=== PATIENT | female | born 1965 | race Caucasian/White ===

== ENCOUNTER 2024-09-16 14:39 | Emergency (ER) | payer SELFPAY ==
[2024-09-16 14:40] VITALS: BMI 35.2
[2024-09-16 15:36] VITALS: BP 168/94; PULSE 80; RESP 19; TEMP 37.1; O2SAT 96
--- NOTE | 2024-09-16 15:39 | XR_ITS ---
Examination: Bilateral wrists 6 views TECHNIQUE: AP oblique lateral bilateral wrists 6 views Exam date and time: September 16, 2024 1552 hours INDICATIONS: Injury to the wrist today, wrist pain. FINDINGS: 3 mm old bone density adjacent to the trapezium Old fracture distal left radial metaphysis No acute wrist fracture No opaque foreign body IMPRESSION: No acute wrist fracture
[2024-09-16] MEDS: IBUPROFEN TAB 600 MG TABLET PO (15:44)
--- NOTE | 2024-09-16 16:11 | EDNOTE_ITS ---
ED Fall Injury RME/HPI General Chief Complaint: Fall Stated Complaint: FALL/TRIP AT WORK, C/O LEFT WRIST PAIN Time Seen by Provider: 09/16/24 15:42 Source: patient Arrival date/time: 09/16/24 14:39 This is a 59-year-old female who presents to the emergency department with complaints of a trip and fall while at work. Patient reports she was carrying something while walking and tripped over landing on her outstretched left hand. Complains of intermittent left wrist pain. Patient did not attempt any interventions or take any OTC medications prior to ED visit. Patient denies any other associated symptoms or aggravating factors. No modifying factors, no radiation, no migration. Mode of arrival: ambulatory Related Data Previous Rx's ?Medication ?Instructions ?Recorded naproxen 500 mg tablet 500 mg PO BID #20 tabs 06/07/18 Allergies Allergy/AdvReac Type Severity Reaction Status Date / Time No Known Allergies Allergy Verified 09/16/24 14:41 Review of Systems Review of Systems Systems Reviewed: All systems reviewed, normal except as documented Narrative Review of Systems: Gen: No fever, no chills, no weight loss EYES: No discharge, no visual changes, no pain HEENT: No ear pain, no congestion, no sore throat PULM: No shortness of breath, no cough, no congestion CV: No chest pain, no dyspnea on exertion, no palpitations GI: No nausea, no vomiting, no diarrhea, no pain, no constipation : No frequency, no urgency,? no dysuria Musc/skel: No joint pain, no back pain Skin: No rash? ED Exam Narrative Physical exam: General: Sittiing in Exam table in no acute distress, answering questions appropriately HENT: normocephalic, atraumatic, EOMI, PERRLA, moist mucous membranes Chest: chest wall is nontender Cardiac: regular rate and rhythm, normal S1 and S2, no murmurs, rubs, or gallops, capillary refill ?2 seconds Pulmonary: clear to auscultation bilaterally, no wheezing, crackles, or rhonchi Abdominal: active bowel sounds, soft, nontender, nondistended Neuro: A&OX3, CN II-XII intact, sensation grossly intact bilaterally in UE and LE. Skin: no rashes, no ecchymosis Ext:kleft arm pain with rom Course Quality Measures none Orders Category Date Time Status XR wrist comp BI min 3V Stat Exams 09/16/24 15:39 Completed Ibuprofen Tab [Motrin Tab] Med 09/16/24 15:39 Discontinued 600 mg PO X1 ONE Vital Signs Vital signs: Vital Signs Temperature 98.7 F 09/16/24 15:36 Pulse Rate 80 09/16/24 15:36 Respiratory Rate 19 09/16/24 15:36 Blood Pressure 168/94 H 09/16/24 15:36 Pulse Oximetry (%) 96 09/16/24 15:36 Oxygen Delivery Method Room Air 09/16/24 15:36 Fall MDM Narrative MDM Narrative:: 59-year-old female evaluated in the emergency department with complaints of a trip and fall while at work. Complaining of left wrist pain. left wrist x-ray no acute fractures does demonstrate possible old injury. Advised to wear splint until seen and reevaluated by her PCP repeat x-ray in 1 week. Advised to return to the emergency department this any worsening symptoms or change in condition. Patient data External records reviewed:: [facility] previous records Clinical information provided by:: patient Social determinants that could affect healthcare access:: none Patient has the following chronic illnesses:: no How is presenting disease/condition affected by chronic disease/condition?: no chronic disease Evaluation data The following diagnostics were reviewed and interpreted by me:: radiology exam(s) Lab and/or radiology exams considered but not ordered:: no Interpretation Summary: Examination: Bilateral wrists 6 views TECHNIQUE: AP oblique lateral bilateral wrists 6 views Exam date and time: September 16, 2024 1552 hours INDICATIONS: Injury to the wrist today, wrist pain. FINDINGS: 3 mm old bone density adjacent to the trapezium Old fracture distal left radial metaphysis No acute wrist fracture No opaque foreign body IMPRESSION: No acute wrist fracture Medications / Prescriptions Medications or Prescriptions considered but not ordered:: no Medication administrations:: Medication Administration History Discontinued Medications Ibuprofen (Ibuprofen Tab 600 Mg Tablet) 600 mg PO X1 ONE Stop: 09/16/24 15:40 Last Admin: 09/16/24 15:44 Dose: 600 mg Documented By: KATHERINE All medications administered and effective Consultations Consultation(s) initiated? (list below): No Diagnosis Fall Differential Diagnosis: fracture of wrist and compression fracture Most likely diagnosis given after review of the tests above:: Sprain wrist left Admission Indicated Admission indicated?: not indicated Admission Request Was there a request for admission?: No Disposition Plan Disposition Plan: Discharge Discharge Attestation Discharge Attestation: The patient and all family members were given an opportunity to ask questions and understood the discharge instructions. Discharge instructions specifically effects, indications for sooner follow up or return to the emergency department, and the expected course of current diagnosis. Patient condition: Stable Discharge Plan Plan Patient Disposition: HOME (Self Care) Prescriptions/Referrals Prescriptions/Med Rec: No Action naproxen 500 mg tablet 500 mg PO BID Qty: 20 0RF Problem List Clinical Impression: Fall, Left wrist sprain Patient/Caregiver Discharge Instructions Discharge Activity: activity as tolerated Education Materials: ED Wrist Sprain Additional Instructions: Please follow-up with your Worker's Comp. doctor or primary doctor. Use Danial bandage as directed. There is no fractures on your x-ray. Return to the emergency department this any worsening symptoms any condition. Print Language: [place] Stand Alone Forms: Meeta Award Info., Patient Portal Info Letter LANDON/MELVIN Supervising Physician LANDON/MELVIN Supervising Physician: dr. Johnson
== END 2024-09-16 17:44 | disposition home or self-care (01) ==
PROVIDERS: Emergency Provider Emergency Medicine; PCP Family Medicine
DX: S63.502A Unspecified sprain of left wrist, initial encounter (principal); S69.91XA Unspecified injury of right wrist, hand and finger(s), initial encounter; W01.0XXA Fall on same level from slipping, tripping and stumbling without subsequent striking against object, initial encounter; Y99.0 Civilian activity done for income or pay
CPT/HCPCS: 73110; 99283; A9270